=== PATIENT | male | born 1960 | race Caucasian/White ===

== ENCOUNTER → 2018-02-05 18:21 | Outpatient (CLI) | payer OTHER, SELFPAY ==
[2018-02-05 18:53] LABS: D Dimer 259 ng/mL (<230)
== END ==
PROVIDERS: Family Provider Internal Medicine; PCP Internal Medicine; Visit Provider Physician Assistant
DX: M79.669 Pain in unspecified lower leg (principal)
CPT/HCPCS: 36415; 85379

== ENCOUNTER 2018-04-06 20:34 | Emergency (ER) | payer OTHER, SELFPAY ==
--- NOTE | 2018-04-06 20:41 | ED_ITS ---
HPI - Extremity Problem <CAITIE Lund - Last Filed: 04/06/18 22:14> General Chief complaint: Wound/Laceration Stated complaint: Lt 3rd Finger laceraton Time Seen by Provider: 04/06/18 20:41 Source: patient Mode of arrival: ambulatory Limitations: no limitations History of Present Illness HPI Narrative: 57-year-old male with history of coronary artery disease and is a nonsmoker here for complaint of laceration to his left little finger. Earlier this evening he was cutting onions with a knife and accidentally cut the left tip of his little finger. He denies any other injuries. He states that there is a flap to the distal edge of his left pinky. He does not know his last tetanus shot. No other concerns or complaints at this time. Related Data Allergies Allergy/AdvReac Type Severity Reaction Status Date / Time No Known Drug Allergies Allergy Verified 04/06/18 21:44 Review of Systems <CAITIE Lund - Last Filed: 04/06/18 22:14> Constitutional Denies chills, Denies fever(s), Denies lethargy and Denies weakness Eyes Denies change in vision, Denies eye discharge, Denies irritation and Denies loss of vision ENT Ears, Nose, Mouth, and Throat: Denies change in voice, Denies neck pain and Denies sore throat Cardiovascular Denies chest pain, Denies irregular heart rhythm, Denies lightheadedness, Denies palpitations, Denies dyspnea, Denies dyspnea on exertion and Denies orthopnea Respiratory Denies cough, Denies dyspnea, Denies dyspnea on exertion and Denies wheezing Gastrointestinal Gastrointestinal: Denies abdominal pain, Denies change in bowel habits, Denies diarrhea, Denies nausea and Denies vomiting Genitourinary Denies hematuria, Denies flank pain, Denies urinary incontinence and Denies urinary urgency Musculoskeletal Denies neck pain Comments: Laceration to distal left little finger Integumentary/Breasts Denies pruritus, Denies erythema, Denies rash and Denies wounds Neurologic Denies confusion, Denies loss of vision and Denies weakness Psychiatric Denies anxiety, Denies confusion, Denies depression, Denies homicidal ideation and Denies suicidal ideation Endocrine Denies palpitations Hematologic/Lymphatic Denies easy bruising Allergic/Immunologic Denies wheezing Exam <CAITIE Lund - Last Filed: 04/06/18 22:14> Initial Vital Signs Initial Vital Signs: Vital Signs Temperature 98.3 F 04/06/18 20:43 Pulse Rate 81 04/06/18 20:43 Respiratory Rate 14 04/06/18 20:43 Blood Pressure 145/96 H 04/06/18 20:43 Pulse Oximetry 96 04/06/18 20:43 Const General: cooperative and well developed Nutritional Appearance: well nourished Orientation: alert, awake, oriented x3 and not confused [facility] Mouth: oral mucosae normal and mucous membranes abnormal Eyes Conjunctivae: conjunctivae normal Sclera: sclerae normal Pupils: PERRL EOM: EOM intact bilaterally Resp Effort & Inspection: normal respiratory effort, able to speak in complete sentences, no respiratory distress and no use of accessory muscles Auscultation: clear to auscultation bilaterally, no rales, no rhonchi and no wheezes Cardio Rate: regular rate Rhythm: regular rhythm Heart Sounds: no click, no gallops, no murmurs and no rubs Pulses: normal peripheral pulses Skin General: no rashes or lesions noted, No jaundice and No petechiae Neuro General: alert, oriented x3, gait normal and no focal motor deficits Speech: speech normal Extrem Other: 1 cm flap laceration to the distal tip of the left little finger with slight injury to the radial aspect of the nail bed. Distal flap appears to have good cap refill. Distal sensation is intact. Distal cap refill less than 2 sec. Full range of motion of the finger. <Elijah Lofton DO - Last Filed: 04/07/18 05:22> Initial Vital Signs Initial Vital Signs: Vital Signs Temperature 98.3 F 04/06/18 20:43 Pulse Rate 81 04/06/18 20:43 Respiratory Rate 14 04/06/18 20:43 Blood Pressure 145/96 H 04/06/18 20:43 Pulse Oximetry 96 04/06/18 20:43 Procedures <CAITIE Lund - Last Filed: 04/06/18 22:14> Laceration Repair Laceration 1: Site: other (Distal left little finger) Side (If applicable): left Size (cm): 1 Description: flap Depth: simple, single layer Local Anesthetic: lidocaine 1% Amount of anesthesia used (mL): 2 Pre-repair: wound explored and irrigated extensively Skin layer closed with: nylon Size (cm): 5-0 Number of sutures: 4 Technique: simple, interrupted Course <CAITIE Lund - Last Filed: 04/06/18 22:14> Orders Ordered: Discontinued Medications Diphtheria/Tetanus/Acell Pertussis (Adacel) 0.5 ml IM .ONCE ONE Stop: 04/06/18 21:37 Last Admin: 04/06/18 21:48 Dose: 0.5 ml Vital Signs - 8 hr 04/06/18 22:09 Temperature 97.9 F Pulse Rate 79 Respiratory Rate 16 Blood Pressure 130/92 H Pulse Oximetry 96 <Elijah Lofton DO - Last Filed: 04/07/18 05:22> Orders Ordered: Discontinued Medications Diphtheria/Tetanus/Acell Pertussis (Adacel) 0.5 ml IM .ONCE ONE Stop: 04/06/18 21:37 Last Admin: 04/06/18 21:48 Dose: 0.5 ml Vital Signs - 8 hr 04/06/18 22:09 Temperature 97.9 F Pulse Rate 79 Respiratory Rate 16 Blood Pressure 130/92 H Pulse Oximetry 96 MDM - Extremity (Nontraumatic) <CAITIE Lund - Last Filed: 04/06/18 22:14> MDM Narrative Medical decision making narrative: Flap laceration to the distal left index finger was closed with 4 5-0 nylon simple interrupted sutures with good wound closure. Wound dressed with bacitracin and dressing. Sutures removed in 7-10 days. [id number] Tylenol or Motrin as needed for any discomfort. Keep wound area clean and dry for 24-36 hr. After this. May shower briefly. Dry wound after shower redressed with bacitracin dressing. Dress wound daily with bacitracin dressing. For any worsening symptoms return to the emergency room. Discharge Plan Departure Patient Disposition: Home Clinical Impression: Laceration of left little finger Discharge Date/Time: 04/06/18 22:10 Interventions: ED Discharge Assessment Last Done: 04/06/18 22:09 Instructions: DI for Laceration Repair Activity Restrictions/Additional Instructions: laceration to the left index finger was closed with 4 sutures with good wound closure. Wound dressed with bacitracin and dressing. Sutures removed in 7-10 days. [id number] Tylenol or Motrin as needed for any discomfort. Keep wound area clean and dry for 24-36 hr. After this, May shower briefly. Dry wound after shower redress with bacitracin and a dressing. Dress wound daily with bacitracin and a dressing. For any worsening symptoms return to the emergency room. Referrals: Eusebio Bro MD [Primary Care Provider] - <Elijah Lofton DO - Last Filed: 04/07/18 05:22> Cosign ED Attending Cosignature Attestation: I was immediately available in the department for consultation. Documentation has been reviewed. I agree with assessment and plan.
[2018-04-06 20:43] VITALS: BP 145/96; PULSE 81; RESP 14; TEMP 36.8; O2SAT 96
[2018-04-06 20:52] VITALS: BP 145/96; PULSE 81; RESP 14; TEMP 36.8; O2SAT 96; BMI 28.8
[2018-04-06] MEDS: TET,DIPH,PERTUSS(ACELL),VAC/PF 0.5 ML SYRINGE IM (21:48)
[2018-04-06 22:09] VITALS: BP 130/92; PULSE 79; RESP 16; TEMP 36.6; O2SAT 96
== END 2018-04-06 22:10 | disposition home or self-care (01) ==
PROVIDERS: Emergency Provider Nurse Practitioner Family; Family Provider Internal Medicine; PCP Internal Medicine
DX: S61.217A Laceration without foreign body of left little finger without damage to nail, initial encounter (principal); W26.0XXA Contact with knife, initial encounter
CPT/HCPCS: 12001; 90471; 99283; 90715

== ENCOUNTER → 2022-08-06 17:48 | Outpatient (CLI) | payer OTHER, SELFPAY ==
[2022-08-06 20:37] LABS: Urine N gonorrhoeae NOT DETECTED
[2022-08-06 20:42] LABS: Urine Chlamydia NOT DETECTED
== END ==
PROVIDERS: Family Provider Internal Medicine; PCP Internal Medicine; Visit Provider Nurse Practitioner Family
DX: Z72.51 High risk heterosexual behavior (principal)
CPT/HCPCS: 87491; 87591

== ENCOUNTER → 2022-08-07 13:38 | Outpatient (CLI) | payer OTHER, SELFPAY ==
[2022-08-09 05:22] LABS: HSV1IGG < 0.91 index (0.00-0.90); RPR Screen Non Reactive (Non Reactive)
[2022-08-09 15:40] LABS: Hepatitis B Surface Antigen NEGATIVE s/c (NEGATIVE)
[2022-08-09 15:55] LABS: HIV 1 & 2 Ab/Ag 4th Gen Combo NEGATIVE (NEGATIVE); Hep C Virus Ab w/Reflex Quant NEGATIVE s/c (NEGATIVE)
== END ==
PROVIDERS: Family Provider Internal Medicine; PCP Physician Assistant; Referring Provider Nurse Practitioner Family; Visit Provider Nurse Practitioner Family
DX: R30.0 Dysuria (principal)
CPT/HCPCS: 36415; 86592; 86695; 86696; 86803; 87340; 87389

== ENCOUNTER → 2022-10-23 07:24 | Outpatient (CLI) | payer OTHER, SELFPAY ==
[2022-10-23 08:00] LABS: Add Manual Diff / Slide Review NO; Basophils Absolute Auto 100 /uL (0-100); Basophils Percent Auto 1.2 % (0-2); Eosinophils Absolute Auto 700 /uL (0-450); Eosinophils Percent Auto 11.2 % (2-4); Hematocrit 46.2 % (41-53); Hemoglobin 15.7 g/dL (13.5-17.5); Lymphocytes Absolute Auto 1700 /uL (1100-4500); Lymphocytes Percent Auto 26.7 % (25-40); Mean Corpuscular Hemoglobin 29.1 PG (26-34); Mean Corpuscular Volume 85.6 fL (80-100); Monocytes Absolute Auto 600 /uL (0-900); Monocytes Percent Auto 9.7 % (3-14); Neutrophils Absolute Auto 3200 /uL (1500-7000); Neutrophils Percent Auto 51.2 % (50-75); Platelet Count 197 X10^3/uL (150-400); Red Blood Cell Count 5.39 X10^6/uL (4.5-5.9); Red Cell Distribution Width 13.6 % (11.6-14.8); White Blood Cell Count 6.3 X10^3/uL (4.5-11.0)
[2022-10-23 08:23] LABS: Alanine Aminotransferase 55 IU/L (<50); Albumin 4.4 g/dL (3.5-5.0); Albumin Globulin Ratio 1.6 (1.0-2.8); Alkaline Phosphatase 52 U/L (38-126); Aspartate Aminotransferase 35 IU/L (17-59); BUN Creatinine Ratio 15.2 (6-22); Bilirubin Total 0.6 mg/dL (0.2-1.3); Blood Urea Nitrogen 15 mg/dL (9-20); Calcium 9.3 mg/dL (8.4-10.2); Carbon Dioxide 31 mmol/L (22-32); Chloride 99 mmol/L (98-107); Cholesterol 236 mg/dL (140-199); Estimated Glomerular Filt Rate > 60 mL/min (>60); Globulin 2.7 g/dL (1.7-4.1); Glucose 108 mg/dL (80-110); HDL Cholesterol 32 mg/dL (40-60); HEMOLYSIS < 15 (0-50); LDL Cholesterol Calculated 175 mg/dL (<100); Potassium 4.7 mmol/L (3.4-5.1); Sodium 136 mmol/L (137-145); Total Protein 7.1 g/dL (6.3-8.2); Triglycerides 144 mg/dL (35-150)
[2022-10-23 08:40] LABS: Thyroid Stimulating Hormone 3.94 uIU/mL (0.47-4.68)
[2022-10-23 08:53] LABS: Prostate Specific Antigen Scrn 0.389 ng/mL (0.1-4.0)
[2022-10-23 08:56] LABS: Testosterone 272 ng/dL (71.8-623)
[2022-10-24 03:15] LABS: Labcorp Hemoglobin (Hb) A1c 5.9 % (4.8-5.6)
== END ==
PROVIDERS: Family Provider Internal Medicine; PCP Naturopath; Referring Provider Naturopath; Visit Provider Naturopath
DX: Z00.00 Encounter for general adult medical examination without abnormal findings (principal); R53.83 Other fatigue
CPT/HCPCS: 36415; 80053; 80061; 83036; 84403; 84443; 85025; 86900; 86901; G0103

== ENCOUNTER → 2023-09-16 11:04 | Outpatient (CLI) | payer BC, SELFPAY | PROVIDERS: Family Provider Internal Medicine; PCP Naturopath; Visit Provider Nurse Practitioner Family | DX: L72.3 Sebaceous cyst (principal) | CPT/HCPCS: 87070; 87075; 87205 ==

== ENCOUNTER → 2024-10-09 13:48 | Outpatient (CLI) | payer BC, SELFPAY ==
--- NOTE | 2024-10-09 13:49 | DI.US.S_ITS ---
PROCEDURE: US PERIPH VENOUS LOW EXTREM RT INDICATIONS: Right leg swelling TECHNIQUE: Real-time imaging, as well as color and pulse Doppler interrogation, were performed of the lower extremity deep veins from the inguinal ligament to the popliteal fossa, with documentation of the visualized calf veins. COMPARISON: None. FINDINGS: The common femoral, femoral and popliteal veins demonstrate no thrombosis. Peroneal veins in the mid calf demonstrate thrombosis and lack of compressibility. IMPRESSION: Peroneal deep venous thrombosis. Dictated by: Ban Lagos M.D. on 10/09/2024 at 14:38 Approved by: Ban Lagos M.D. on 10/09/2024 at 14:41
== END ==
PROVIDERS: Family Provider Internal Medicine; PCP Naturopath; Referring Provider Nurse Practitioner Family; Visit Provider Nurse Practitioner Family
DX: M79.89 Other specified soft tissue disorders (principal); I82.451 Acute embolism and thrombosis of right peroneal vein
CPT/HCPCS: 93971

== ENCOUNTER 2024-10-09 14:37 | Emergency (ER) | payer BC, SELFPAY ==
[2024-10-09 14:44] VITALS: BP 156/89; PULSE 59; RESP 17; TEMP 37.1; O2SAT 98; BMI 25.0
--- NOTE | 2024-10-09 18:39 | ED_ITS ---
HPI - Extremity Problem General Chief complaint: Extremity Problem,Nontraumatic Stated complaint: bloodclot Rt leg-pcp ref Time Seen by Provider: 10/09/24 18:17 Source: patient, RN notes reviewed and old records reviewed Mode of arrival: Ambulatory Limitations: no limitations History of Present Illness HPI Narrative: 65-year-old male history of coronary artery stents proximally 10 years ago no daily medications who presents with complaint of right lower extremity pain distal thigh some mild swelling. Patient denies any fevers. No chest pain or shortness of breath. No syncope. No other GI or urinary symptoms. No numbness tingling or weakness in his extremities. Patient states no daily medications. States cardiac stents 10 years ago. No known drug allergies. Occasional tobacco but not regularly in the last 10 years. No IV drugs. Patient was seen outpatient had a DVT ultrasound when she was found to be positive and sent to the emergency department. He used to take an aspirin daily but no longer takes any anticoagulation. Patient does have a primary care physician to follow with. Related Data Previous Rx's ?Medication ?Instructions ?Recorded apixaban 5 mg (74 tabs) tablets in See Rx Instructions PO .COMPLEX 10/09/24 a dose pack #74 ea Allergies Allergy/AdvReac Type Severity Reaction Status Date / Time No Known Drug Allergies Allergy Verified 10/09/24 14:47 Review of Systems Review of Systems ROS Unobtainable: All systems reviewed & are unremarkable except as noted in HPI and below Patient History Social History alcohol intake: current Smoking Status: Former smoker alcohol intake frequency: 0-2 drinks per day Exam Narrative Exam Narrative: GENERAL: Alert and oriented x three, male in mild distress HEENT: Head normocephalic, atraumatic, EOMI, pupils reactive, face symmetric, moist mucous membranes NECK: Supple, full range of motion CARDIOVASCULAR: Regular rate and rhythm without murmurs, rubs or gallops. RESPIRATORY: Breath sounds equal bilaterally, no wheezes rales or rhonchi. ABDOMEN: Soft, nontender. Normoactive bowel sounds all 4 quadrants. No guarding or rebound, rigidity, no mass : No CVA tenderness EXTREMITIES: Normal range of motion, no clubbing, very mild swelling right in comparison to left. No warmth, no erythema, no skin changes. 2+ pulses bilaterally. Neurovascularly intact NEUROLOGICAL: Cranial nerves II through XII grossly intact. Moving all extremities SKIN: Warm, dry, no petechiae, no rashes or lesions. Initial Vital Signs Initial Vital Signs: Vital Signs Temperature 98.7 F 10/09/24 14:44 Pulse Rate 59 L 10/09/24 14:44 Respiratory Rate 17 10/09/24 14:44 Blood Pressure 156/89 H 10/09/24 14:44 Pulse Oximetry 98 10/09/24 14:44 Oxygen Delivery Method Room Air 10/09/24 14:44 Course Orders Ordered: Discontinued Medications Apixaban (Apixaban 5 Mg Tablet) 10 mg PO NOW ONE Stop: 10/09/24 18:49 Last Admin: 10/09/24 19:00 Dose: 10 mg Documented By: ZURI Vital Signs Vital signs: Vital Signs - 8 hr 10/09/24 14:44 Temperature 98.7 F Pulse Rate 59 L Respiratory Rate 17 Blood Pressure 156/89 H Pulse Oximetry 98 Oxygen Delivery Method Room Air MDM - Extremity (Nontraumatic) MDM Narrative Medical decision making narrative: Outpatient Right lower extremity DVT ultrasound shows peroneal DVT in the mi d calf demonstrating thrombosis and lack of compressibility. Spoke with the patient was going to obtain baseline labs but he would prefer to discharge home he was open to starting anticoagulation. Does not currently have any other she was sudden new symptoms such as chest pain or shortness of breath necessitating further workup but reviewed return precautions. All questions answered. Discharge Plan Departure Patient Disposition: Home Clinical Impression: Deep vein thrombosis of lower extremity Instructions: DI for Deep Vein Thrombosis Activity Restrictions/Additional Instructions: Please follow up with your primary care physician, you are found to have a deep vein thrombosis in your peroneal vein. Typically individuals have to take anticoagulation for at least 6-12 months depending on the cause of the symptoms. Talk with your physician about working up white you developed a DVT. [facility] Take 10 mg twice daily for 7 days, then 5 mg twice daily. Follow up with your physician for refills. If you find that it was particularly expensive or not covered by insurance the pharmacy can contact us to change your medication. Please return for fevers, new chest pain or shortness of breath, lightheadedness or passing out, new swelling of your extremities or other new or concerning changes. Prescriptions: New apixaban 5 mg (74 tabs) tablets,dose pack See Rx Instructions .ROUTE .COMPLEX Qty: 74 0RF Rx Instructions: 10 mg (2 tablets) p.o. BID x7 days, then 5 mg (1tablet) p.o. BID Referrals: Parvin Avina ND [Primary Care Provider, Naturopathy] Stand Alone Forms: Patient Portal/API/Survey
[2024-10-09] MEDS: APIXABAN 5 MG TABLET 10 MG PO (19:00)
== END 2024-10-09 19:12 | disposition home or self-care (01) ==
PROVIDERS: Emergency Provider Emergency Medicine; Family Provider Internal Medicine; PCP Naturopath
DX: I82.401 Acute embolism and thrombosis of unspecified deep veins of right lower extremity (principal); M79.89 Other specified soft tissue disorders; I82.451 Acute embolism and thrombosis of right peroneal vein
CPT/HCPCS: 93971; 99283

== ENCOUNTER → 2024-10-13 08:16 | Outpatient (CLI) | payer BC, SELFPAY ==
[2024-10-13 08:58] LABS: Add Manual Diff / Slide Review NO; Basophils Absolute Auto 100 /uL (0-100); Basophils Percent Auto 0.8 % (0-2); Eosinophils Absolute Auto 600 /uL (0-450); Eosinophils Percent Auto 9.2 % (2-4); Hematocrit 43.1 % (41-53); Hemoglobin 14.3 g/dL (13.5-17.5); Lymphocytes Absolute Auto 1600 /uL (1100-4500); Lymphocytes Percent Auto 26.4 % (25-40); Mean Corpuscular Hemoglobin 28.8 PG (26-34); Monocytes Absolute Auto 600 /uL (0-900); Monocytes Percent Auto 8.9 % (3-14); Neutrophils Absolute Auto 3400 /uL (1500-7000); Neutrophils Percent Auto 54.7 % (50-75); Platelet Count 215 X10^3/uL (150-400); Red Blood Cell Count 4.96 X10^6/uL (4.5-5.9); Red Cell Distribution Width 13.5 % (11.6-14.8); White Blood Cell Count 6.2 X10^3/uL (4.5-11.0)
[2024-10-13 09:11] LABS: D Dimer 1049 ng/ml (<500)
[2024-10-13 09:16] LABS: Hemoglobin A1C% w Est Avg Glu 5.3 % (4.0-6.0)
[2024-10-13 09:20] LABS: Alanine Aminotransferase 18 IU/L (<50); Albumin 4.4 g/dL (3.5-5.0); Albumin Globulin Ratio 1.8 (1.0-2.8); Alkaline Phosphatase 49 U/L (38-126); Aspartate Aminotransferase 23 IU/L (17-59); BUN Creatinine Ratio 18.2 (6-22); Bilirubin Total 0.8 mg/dL (0.2-1.3); Blood Urea Nitrogen 16 mg/dL (9-20); Calcium 8.9 mg/dL (8.4-10.2); Carbon Dioxide 29 mmol/L (22-32); Chloride 103 mmol/L (98-107); Cholesterol 240 mg/dL (140-199); Estimated Glomerular Filt Rate > 60 mL/min (>60); Globulin 2.4 g/dL (1.7-4.1); Glucose 103 mg/dL (70-99); HDL Cholesterol 42 mg/dL (40-60); HEMOLYSIS < 15 (0-50); LDL Cholesterol Calculated 185 mg/dL (<100); Potassium 4.4 mmol/L (3.4-5.1); Sodium 137 mmol/L (137-145); Total Protein 6.8 g/dL (6.3-8.2); Triglycerides 67 mg/dL (35-150)
[2024-10-13 09:57] LABS: Prostate Specific Antigen 0.346 ng/mL (0.10-4.00); Thyroid Stimulating Hormone 2.41 uIU/mL (0.47-4.68)
== END ==
PROVIDERS: Family Provider Internal Medicine; PCP Naturopath; Referring Provider Naturopath; Visit Provider Naturopath
DX: Z00.00 Encounter for general adult medical examination without abnormal findings (principal); E78.5 Hyperlipidemia, unspecified; R73.03 Prediabetes; I82.409 Acute embolism and thrombosis of unspecified deep veins of unspecified lower extremity
CPT/HCPCS: 36415; 80053; 80061; 83036; 84153; 84443; 85025; 85379

== ENCOUNTER 2024-11-02 14:08 | Emergency (ER) | payer BC, SELFPAY ==
[2024-11-02] VITALS (11 sets, daily range): BP systolic 117–157; BP diastolic 68–85; PULSE 53–64; RESP 18–20; TEMP 36.8; O2SAT 96–98; BMI 24.7
--- NOTE | 2024-11-02 14:22 | DI.RAD.S_ITS ---
PROCEDURE: XR CHEST 1V INDICATIONS: Chest Pain TECHNIQUE: One view of the chest was acquired. COMPARISON: None. FINDINGS AND IMPRESSION: No airspace consolidation or pleural effusion on this single view study. Normal heart size. Unremarkable osseous structures. Dictated by: Isaiah Butts M.D. on 11/02/2024 at 15:15 Approved by: Isaiah Butts M.D. on 11/02/2024 at 15:16
--- NOTE | 2024-11-02 14:26 | DI.CT.S_ITS ---
PROCEDURE: CT HEAD/BRAIN WO CON INDICATIONS: headache on Eliquis TECHNIQUE: Noncontrast 4.5 mm thick angled axial sections acquired from the foramen magnum to the vertex, with coronal and sagittal reformats. For radiation dose reduction, the following was used: automated exposure control, adjustment of mA and/or kV according to patient size. COMPARISON: None. FINDINGS: Image quality: Diagnostic. CSF spaces: Basal cisterns are patent. No extra-axial fluid collections. Ventricles are normal in size and shape. Brain: No midline shift. No intracranial mass effect or hemorrhage. Joe- white matter interface is normal. Skull and face: Calvarium and visualized facial bones are intact, without suspicious lesions. Sinuses: Visualized sinuses and mastoids are clear. IMPRESSION: No acute intracranial pathology. Dictated by: Saurabh Starks M.D. on 11/02/2024 at 14:46 Approved by: Saurabh Starks M.D. on 11/02/2024 at 14:46
--- NOTE | 2024-11-02 14:31 | EKG_ITS ---
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
[2024-11-02 14:51] LABS: Add Manual Diff / Slide Review NO; Basophils Absolute Auto 0 /uL (0-100); Basophils Percent Auto 0.8 % (0-2); Eosinophils Absolute Auto 400 /uL (0-450); Eosinophils Percent Auto 6.2 % (2-4); Hematocrit 44.6 % (41-53); Hemoglobin 14.7 g/dL (13.5-17.5); Lymphocytes Absolute Auto 1700 /uL (1100-4500); Lymphocytes Percent Auto 28.9 % (25-40); Mean Corpuscular HGB Conc 32.9 % (30-36); Monocytes Absolute Auto 500 /uL (0-900); Monocytes Percent Auto 8.3 % (3-14); Neutrophils Absolute Auto 3200 /uL (1500-7000); Neutrophils Percent Auto 55.8 % (50-75); Platelet Count 210 X10^3/uL (150-400); Red Blood Cell Count 5.07 X10^6/uL (4.5-5.9); Red Cell Distribution Width 13.5 % (11.6-14.8); White Blood Cell Count 5.8 X10^3/uL (4.5-11.0)
[2024-11-02 14:59] LABS: Alanine Aminotransferase 18 IU/L (<50); Albumin 4.6 g/dL (3.5-5.0); Alkaline Phosphatase 47 U/L (38-126); Aspartate Aminotransferase 27 IU/L (17-59); BUN Creatinine Ratio 15.9 (6-22); Bilirubin Total 0.6 mg/dL (0.2-1.3); Blood Urea Nitrogen 14 mg/dL (9-20); Calcium 8.9 mg/dL (8.4-10.2); Carbon Dioxide 28 mmol/L (22-32); Chloride 102 mmol/L (98-107); Creatine Kinase 82 U/L (55-170); Estimated Glomerular Filt Rate > 60 mL/min (>60); Glucose 92 mg/dL (70-99); HEMOLYSIS 16 (0-50); Magnesium 2.2 mg/dL (1.6-2.3); Potassium 4.2 mmol/L (3.4-5.1); Sodium 137 mmol/L (137-145); Total Protein 7.6 g/dL (6.3-8.2)
[2024-11-02 15:00] LABS: Albumin Globulin Ratio 1.5 (1.0-2.8); Lipase 70 U/L (23-300)
[2024-11-02 15:08] LABS: INR 1.3 (0.9-1.3); Prothrombin Time 14.4 SECONDS (9.4-12.5)
[2024-11-02 15:11] LABS: PTT Partial Thromboplastin Tim 44 SECONDS (25.1-36.5)
[2024-11-02 15:12] LABS: NT-proBNP (BNP-Adult 18+) 31 pg/mL (<125); Troponin I < 0.012 ng/mL (0.01-0.034)
--- NOTE | 2024-11-02 22:48 | ED_ITS ---
HPI - Headache General Chief Complaint: Headache Stated Complaint: pressure on the back of the head Time Seen by Provider: 11/02/24 22:41 Mode of arrival: Ambulatory History of Present Illness HPI Narrative: 64-year-old male with history of CAD status post remote two-vessel coronary stenting, more recently had diagnosis of right lower extremity venous thrombosis, has started oral Eliquis anticoagulation, now with left lower chest nonpleuritic chest pain, no fevers or chills. Denies recent cough. Also complains of headache pain to the back of his neck, no injury or trauma. No paresthesias to right or left arm. Related Data Previous Rx's ?Medication ?Instructions ?Recorded apixaban 5 mg (74 tabs) tablets in See Rx Instructions PO .COMPLEX 10/09/24 a dose pack #74 ea Allergies Allergy/AdvReac Type Severity Reaction Status Date / Time No Known Drug Allergies Allergy Verified 11/02/24 14:18 Patient History Social History alcohol intake: current alcohol intake frequency: 0-2 drinks per day Exam Narrative Exam Narrative: GENERAL: Well-developed patient, in mild distress. HEAD: Atraumatic. Normocephalic. EYES: Pupils equal round and reactive. Extraocular motions intact. No scleral icterus. No injection or drainage. ENT: Nose without bleeding, purulent drainage. Throat without erythema, tonsillar hypertrophy or exudate. Airway patent. NECK: Trachea midline. Non tender CARDIOVASCULAR: Regular rate and rhythm without murmurs, gallops, or rubs. RESPIRATORY: Clear to auscultation. Breath sounds equal bilaterally. No wheezes, rales, or rhonchi. GASTROINTESTINAL: Abdomen soft, non-tender, nondistended. EXTREMITIES: No edema or joint tenderness. BACK: Nontender without deformity or crepitance. No flank tenderness. NEURO: AOx3. Motor functions grossly nonfocal. SKIN: No rash or erythema of visible areas Initial Vital Signs Initial Vital Signs: Vital Signs Temperature 98.3 F 11/02/24 14:18 Pulse Rate 64 11/02/24 14:18 Respiratory Rate 18 11/02/24 14:18 Blood Pressure 144/85 H 11/02/24 14:18 Pulse Oximetry 96 11/02/24 14:18 Oxygen Delivery Method Room Air 11/02/24 14:18 Course Orders Ordered: ED Orders 11/03/24 00:44 CT angio chest PE protocol Stat 11/03/24 00:55 Troponin I Stat Vital Signs Vital signs: Vital Signs - 8 hr 11/03/24 01:06 11/03/24 01:06 11/03/24 01:30 Pulse Rate 54 L Respiratory Rate 10 L Blood Pressure 140/83 127/77 Pulse Oximetry 98 11/03/24 01:30 11/03/24 02:00 11/03/24 02:00 Pulse Rate 54 L 54 L Respiratory Rate 11 L 11 L Blood Pressure 131/81 Pulse Oximetry 96 95 11/03/24 02:30 11/03/24 02:32 11/03/24 02:32 Pulse Rate 80 54 L Respiratory Rate 37 H 16 Blood Pressure 141/84 H Pulse Oximetry 96 MDM - Headache Lab Data Attestation: I reviewed the patient's lab results. Lab results narrative: White blood cell count 5800, hemoglobin 14.7, platelets adequate. Basic metabolic panel unremarkable. Liver functions normal. Troponin negative/unmeasurable x2 interval sets. 11/02/24 14:33 11/02/24 14:33 Labs: Lab Results 11/02/24 11/03/24 Range/Units 14:33 00:55 WBC 5.8 (4.5-11.0) X10^3/uL RBC 5.07 (4.5-5.9) X10^6/uL Hgb 14.7 (13.5-17.5) g/dL Hct 44.6 (41-53) % MCV 88.0 (80-100) fL MCH 29.0 (26-34) PG MCHC 32.9 (30-36) % RDW 13.5 (11.6-14.8) % Plt Count 210 (150-400) X10^3/uL Neut % (Auto) 55.8 (50-75) % Lymph % (Auto) 28.9 (25-40) % Linn % (Auto) 8.3 (3-14) % Eos % (Auto) 6.2 H (2-4) % Baso % (Auto) 0.8 (0-2) % Neut # (Auto) 3200 (6554-9263) /uL Lymph # (Auto) 1700 (6564-8841) /uL Linn # (Auto) 500 (0-900) /uL Eos # (Auto) 400 (0-450) /uL Baso # (Auto) 0 (0-100) /uL PT 14.4 H (9.4-12.5) SECONDS INR 1.3 (0.9-1.3) APTT 44 H (25.1-36.5) SECONDS Sodium 137 (137-145) mmol/L Potassium 4.2 (3.4-5.1) mmol/L Chloride 102 (98-107) mmol/L Carbon Dioxide 28 (22-32) mmol/L BUN 14 (9-20) mg/dL Creatinine 0.88 (0.66-1.25) mg/dL Estimated GFR > 60 (>60) mL/min BUN/Creatinine Ratio 15.9 (6-22) Glucose 92 (70-99) mg/dL Calcium 8.9 (8.4-10.2) mg/dL Magnesium 2.2 (1.6-2.3) mg/dL Total Bilirubin 0.6 (0.2-1.3) mg/dL AST 27 (17-59) IU/L ALT 18 (<50) IU/L Alkaline Phosphatase 47 (38-126) U/L Total Creatine Kinase 82 (55-170) U/L Troponin I < 0.012 < 0.012 (0.01-0.034) ng/mL NT-Pro-B Natriuret Pep 31 (<125) pg/mL Total Protein 7.6 (6.3-8.2) g/dL Albumin 4.6 (3.5-5.0) g/dL Globulin 3.0 (1.7-4.1) g/dL Albumin/Globulin Ratio 1.5 (1.0-2.8) Lipase 70 (23-300) U/L Imaging Data CT scan - head: Radiologist's Impression: [address] [address] [address] Scan Report Signed Patient: Cole Stein MR#: [id number] : 1960 Acct:[id number] Age/Sex: 64 / M Date of Service: 11/02/24 Loc: ED Accession Number: [id number] Procedure: CT head/brain wo con Ordering Provider: Shell Brooks D.O. PROCEDURE: CT HEAD/BRAIN WO CON INDICATIONS: headache on Eliquis TECHNIQUE: Noncontrast 4.5 mm thick angled axial sections acquired from the foramen magnum to the vertex, with coronal and sagittal reformats. For radiation dose reduction, the following was used: automated exposure control, adjustment of mA and/or kV according to patient size. COMPARISON: None. FINDINGS: Image quality: Diagnostic. CSF spaces: Basal cisterns are patent. No extra-axial fluid collections. Ventricles are normal in size and shape. Brain: No midline shift. No intracranial mass effect or hemorrhage. Joe- white matter interface is normal. Skull and face: Calvarium and visualized facial bones are intact, without suspicious lesions. Sinuses: Visualized sinuses and mastoids are clear. IMPRESSION: No acute intracranial pathology. Dictated by: Saurabh Starks M.D. on 11/02/2024 at 14:46 Approved by: Saurabh Starks M.D. on 11/02/2024 at 14:46 Chest x-ray: Radiologist's Impression: [place] [address] XRay Report Signed Patient: Cole Stein MR#: [id number] : 1960 Acct:[id number] Age/Sex: 64 / M Date of Service: 11/02/24 Loc: ED Accession Number: [id number] Procedure: XR chest 1V Ordering Provider: Shell Brooks D.O. PROCEDURE: XR CHEST 1V INDICATIONS: Chest Pain TECHNIQUE: One view of the chest was acquired. COMPARISON: None. FINDINGS AND IMPRESSION: No airspace consolidation or pleural effusion on this single view study. Normal heart size. Unremarkable osseous structures. Dictated by: Isaiah Butts M.D. on 11/02/2024 at 15:15 Approved by: Isaiah Btuts M.D. on 11/02/2024 at 15:16 ECG Data Attestation: I personally reviewed and interpreted this ECG as follows: Interpretation: 1431, normal sinus rhythm with rate of 62, no obvious ST segment elevation or depression changes. [place] 166, QRS 104, QTC 428. MDM Narrative Medical decision making narrative: 64-year-old male with posterior headache along with left anterior chest pain, history of remote CAD status post coronary stent x2 vessels, recent diagnosis right lower extremity DVT, started on Eliquis. Screening EKG without obvious ischemic changes, sinus rhythm. Labs pending. Chest x-ray no acute changes. See radiology report. CT head no acute changes. See radiology report. Renal function adequate, CTA chest ordered. Initial troponin negative, we will repeat interval troponin. Interval troponin also negative. Further workup as an outpatient for now, patient declined pain medications, declines muscle relaxant. Follow up advised with PCP later this week. Discharged home. Return precautions discussed. Discharge Plan Departure Patient Disposition: Home Clinical Impression: Headache, Neck pain, Chest pain Activity Restrictions/Additional Instructions: Recent diagnosis of right-sided lower extremity clot, taking oral anticoagulation. Now with posterior neck discomfort, posterior headache, and chest discomfort of unclear cause. CT head noncontrast study no acute changes. Chest x-ray no acute changes. EKG and serial blood tests not suggestive of heart attack at this time. CT angiogram of the chest showed normal aortic vessel, no blood clots, no acute cardiopulmonary process. You declined pain medication and muscle relaxants when offered. Recheck symptoms with your regular doctor later this week, further evaluation as an outpatient for now. Continue taking your blood thinner medications. Return earlier to this/nearest emergency department for any change worsening symptoms or any concerns prior. Try to avoid Motrin, Naprosyn, anti-inflammatory medications while taking Eliquis anticoagulation, so that you do not have risks of GI bleeding or complications of the anti-inflammatory medications. Consider Tylenol as needed for neck/headache discomfort. Prescriptions: No Action apixaban 5 mg (74 tabs) tablets,dose pack See Rx Instructions .ROUTE .COMPLEX Qty: 74 0RF Rx Instructions: 10 mg (2 tablets) p.o. BID x7 days, then 5 mg (1tablet) p.o. BID Referrals: Parvin Avina ND [Primary Care Provider, Naturopathy] Stand Alone Forms: Patient Portal/API
--- NOTE | 2024-11-03 00:44 | DI.CT.S_ITS ---
PROCEDURE: CT ANGIO CHEST PE PROTOCOL INDICATIONS: chest pain TECHNIQUE: After the administration of intravenous contrast, 2 mm thick sections acquired from the pulmonary apices to the posterior costophrenic angles. 3-dimensional maximum intensity projection (MIP) coronal and sagittal reformats were then acquired through the thorax. For radiation dose reduction, the following was used: automated exposure control, adjustment of mA and/or kV according to patient size. COMPARISON: [facility], CR, XR CHEST 1V, 11/02/2024, 14:51. FINDINGS: Image quality: Diagnostic. Pulmonary arteries: Pulmonary arteries are normal in size, and demonstrate no intraluminal filling defects to suggest central pulmonary embolism. Lower Neck: No enlarged lymph nodes. Thyroid: No thyroid nodules which require sonographic follow up, per consensus guidelines. Axillae: No enlarged lymph nodes. Chest Wall: Unremarkable. Bones: Unremarkable. Lungs and Pleura: No pneumothorax or pleural effusions. No consolidation or suspicious nodules. Heart: Heart size is normal. No pericardial effusion. Thoracic Vessels: No aortic aneurysm. Mediastinum and Luanne: No enlarged lymph nodes. Esophagus: No wall thickening. No hiatal hernia. Upper Abdomen: Visualized upper abdomen solid organs and bowel loops appear normal. IMPRESSION: No pulmonary embolus. No acute cardiopulmonary process. Dictated by: Ban Lagos M.D. on 11/03/2024 at 1:18 Approved by: Ban Lagos M.D. on 11/03/2024 at 1:21
[2024-11-03 01:06] VITALS: BP 140/83; PULSE 54; RESP 10; O2SAT 98
[2024-11-03 01:30] VITALS: BP 127/77; PULSE 54; RESP 11; O2SAT 96
[2024-11-03 01:34] LABS: Troponin I < 0.012 ng/mL (0.01-0.034)
[2024-11-03 02:00] VITALS: BP 131/81; PULSE 54; RESP 11; O2SAT 95
[2024-11-03 02:30] VITALS: PULSE 80; RESP 37
[2024-11-03 02:32] VITALS: BP 141/84; PULSE 54; RESP 16; O2SAT 96
== END 2024-11-03 02:55 | disposition home or self-care (01) ==
PROVIDERS: Emergency Medicine; Emergency Provider Emergency Medicine; Family Provider Internal Medicine; PCP Naturopath
DX: R51.9 Headache, unspecified (principal); M54.2 Cervicalgia; R07.9 Chest pain, unspecified
CPT/HCPCS: 36415; 70450; 71045; 71275; 80053; 82550; 83690; 83735; 83880; 84484; 85025; 85610; 85730; 93005; 93010; 99283; 99284; Q9967